=== PATIENT | female | born 1940 | race Caucasian/White ===

== ENCOUNTER → 2017-03-09 | Outpatient (CLI) | payer OTHER, MEDICARE ==
[~2017-03-09] MED LIST: ATOR10TA88 PO; CALCTAB66 PO; CLR10 PO; GABA-112 PO; LSN/2025 PO; MULTTAB58 PO
[2017-03-09 13:58] LABS: BASO % 0.1 %; BASO ABS # 0.01 K/uL (0-0.2); COMPLETE YES; EOS % 0.5 %; HEMATOCRIT 39.6 % (37-47); IG% 0.1 %; LYMPH % 15.1 %; LYMPH ABS # 1.14 K/uL (1.2-3.4); MEAN CORPUSCULAR HEMOGLOBIN 30.3 pg (25-34); MEAN CORPUSCULAR HGB CONC 33.3 g/dl (32-36); MEAN PLATELET VOLUME 11.5 fL (7.4-10.4); MONO % 9.4 %; NEUT % 74.8 %; PLATELET COUNT 244 K/uL (130-400); RED BLOOD COUNT 4.35 M/uL (4.2-5.4); WHITE BLOOD COUNT 7.53 K/uL (4.8-10.8)
[2017-03-09 14:33] LABS: BLOOD UREA NITROGEN 20 mg/dl (7-18); GLUCOSE 105 mg/dl (70-99)
[2017-03-09 14:34] LABS: ALT/SGPT 22 U/L (12-78); AST/SGOT 21 U/L (15-37); BUN/CREATININE RATIO 19.9 (10-20); CALCIUM 10.1 mg/dl (8.5-10.1); CARBON DIOXIDE 29 mmol/L (21-32); CHLORIDE 102 mmol/L (98-107); POTASSIUM 3.7 mmol/L (3.5-5.1); SODIUM 138 mmol/L (136-145)
[2017-03-09 14:45] LABS: ALKALINE PHOSPHATASE 88 U/L (45-117); CHOLESTEROL 149 mg/dl (0-200); CHOLESTEROL/HDL RATIO 1.9; FERRITIN 158.6 ng/ml (8.0-388.0); HDL CHOLESTEROL 80 mg/dl; LDL CHOLESTEROL CALCULATED 53 mg/dl; TRIGLYCERIDES 81 mg/dl (0-150); VERY LOW DENSITY LIPOPROT CALC 16 mg/dl
== END | disposition home or self-care (01) ==
LOC: C.LABBC 09:26
PROVIDERS: ATTEND Internal Medicine Geriatric Medicine
DX: Z86.79 Personal history of other diseases of the circulatory system (principal); G25.81 Restless legs syndrome; E78.5 Hyperlipidemia, unspecified; E04.2 Nontoxic multinodular goiter; R73.9 Hyperglycemia, unspecified; M85.80 Other specified disorders of bone density and structure, unspecified site

== ENCOUNTER → 2017-04-12 | Outpatient (CLI) | payer OTHER, MEDICARE ==
[2017-04-12 17:29] LABS: THYROID STIMULATING HORMONE 0.317 uIu/ml (0.300-4.500)
== END | disposition home or self-care (01) ==
LOC: C.LABBC 14:20
PROVIDERS: ATTEND Internal Medicine Geriatric Medicine
DX: R94.6 Abnormal results of thyroid function studies (principal)

== ENCOUNTER → 2017-09-21 | Outpatient (CLI) | payer OTHER, MEDICARE ==
[~2017-09-21] MED LIST changes: +ATOR10TA82 PO; -ATOR10TA88 PO
--- NOTE | 2017-09-21 10:53 | DIAGNOSTIC IMAGING REPORT ---
CHEST 2 VIEWS ROUTINE HISTORY: 77 years-old Female HYPERTENSION, HYPERGLYCEMIA acute hypertension with hyperglycemia COMPARISON: Chest radiograph 06/11/2014, CTA of the chest 06/11/2016 TECHNIQUE: PA and lateral views of the chest FINDINGS: Cardiomediastinal and hilar silhouettes are within normal limits. Bilateral subpleural predominant reticular opacities are again seen suggesting areas of scarring. There is no pneumothorax, pleural effusion, focal airspace consolidation or overt pulmonary edema. Mild left hemidiaphragmatic elevation. Degenerative changes are noted within the shoulders and spine. Ill-defined calcifications about the right shoulder suggest possible calcific bursitis. IMPRESSION: No acute process. The above report was generated using voice recognition software. It may contain grammatical, syntax or spelling errors. Electronically signed by: Bentley Alarcon M.D. 09/21/2017 10:51 AM Dictated Date/Time: 09/21/2017 10:50 AM
[2017-09-21 13:20] LABS: BASO % 0.2 %; BASO ABS # 0.02 K/uL (0-0.2); EOS % 0.8 %; EOS ABS # 0.07 K/uL (0-0.5); HEMATOCRIT 40.5 % (37-47); HEMOGLOBIN 13.6 g/dL (12.0-16.0); IG# 0.02 K/uL (0.00-0.02); LYMPH % 20.2 %; MEAN CELL VOLUME 91.4 fL (80-100); MEAN CORPUSCULAR HEMOGLOBIN 30.7 pg (25-34); MEAN CORPUSCULAR HGB CONC 33.6 g/dl (32-36); MEAN PLATELET VOLUME 11.4 fL (7.4-10.4); MONO ABS # 0.76 K/uL (0.11-0.59); NEUT % 69.6 %; NEUT ABS # 5.83 K/uL (1.4-6.5); PLATELET COUNT 299 K/uL (130-400); RED CELL DISTRIBUTION WIDTH CV 13.6 % (11.5-14.5)
[2017-09-21 13:30] LABS: ALBUMIN 3.7 gm/dl (3.4-5.0); BLOOD UREA NITROGEN 12 mg/dl (7-18); CALCIUM 9.8 mg/dl (8.5-10.1); CARBON DIOXIDE 30 mmol/L (21-32); GLUCOSE 100 mg/dl (70-99); POTASSIUM 3.6 mmol/L (3.5-5.1); SODIUM 138 mmol/L (136-145)
[2017-09-21 13:46] LABS: ALKALINE PHOSPHATASE 84 U/L (45-117); ALT/SGPT 20 U/L (12-78); AST/SGOT 18 U/L (15-37); TOTAL PROTEIN 7.6 gm/dl (6.4-8.2)
[2017-09-21 14:36] LABS: HEMOGLOBIN A1C 5.6 % (4.5-5.6)
== END | disposition home or self-care (01) ==
LOC: C.RADBC 10:14
PROVIDERS: ATTEND Internal Medicine Geriatric Medicine
DX: I10 Essential (primary) hypertension (principal); R63.4 Abnormal weight loss; R73.9 Hyperglycemia, unspecified; R94.6 Abnormal results of thyroid function studies

== ENCOUNTER → 2017-09-22 | Outpatient (CLI) | payer OTHER, MEDICARE | END | disposition home or self-care (01) | LOC: C.LABBC 13:29 | PROVIDERS: ATTEND Internal Medicine Geriatric Medicine | DX: R31.9 Hematuria, unspecified (principal) ==

== ENCOUNTER → 2017-09-27 | Outpatient (CLI) | payer OTHER, MEDICARE ==
[~2017-09-27] MED LIST changes: +OPTIRAY 320 IV PRN
--- NOTE | 2017-09-27 12:51 | DIAGNOSTIC IMAGING REPORT ---
CT OF THE ABDOMEN AND PELVIS WITH AND WITHOUT CONTRAST HEMATURIA PROTOCOL CLINICAL HISTORY: Hematuria. Weight loss. COMPARISON STUDY: CT of the abdomen and pelvis February 05, 2011. TECHNIQUE: Unenhanced and split bolus phase imaging of the abdomen and pelvis was performed. Injection of 94 cc Optiray 320 IV was uneventful. A dose lowering technique was utilized adhering to the principles of ALARA. CT DOSE: 823.35 mGy.cm FINDINGS: Several hypodense hepatic lesions are unchanged since CT of February 05, 2011. These are benign given stability. There is no biliary or pancreatic ductal dilatation. The spleen and adrenal glands are unremarkable. No renal, ureteral or bladder calculi are present. There is no hydronephrosis or hydroureter. There are no renal lesions. No upper tract filling defects are identified to suggest a urothelial lesion. Bladder is suboptimally assessed given incomplete opacification underdistention. However, no bladder mass is noted. There is no evidence for a bowel obstruction. There is extensive sigmoid diverticulosis. There is moderate asymmetric wall thickening of the proximal sigmoid colon with mild adjacent infiltration. There is no free air or abscess. There is no lymphadenopathy. There are no suspicious osseous lesions. The ovaries are not enlarged. IMPRESSION: 1. No CT findings to explain hematuria. No urinary calculi or upper tract urothelial lesions. Suboptimal evaluation of the bladder but no discrete bladder mass identified. 2. Extensive sigmoid diverticulosis with moderate focal asymmetric wall thickening of the proximal sigmoid colon with mild pericolonic infiltration. The infiltration suggests acute diverticulitis. Asymmetric colonic wall thickening raises the possibility of an underlying mucosal lesion. A follow-up colonoscopy is recommended. Electronically signed by: Osmany Benitez M.D. 09/27/2017 12:49 PM Dictated Date/Time: 09/27/2017 12:33 PM
== END | disposition home or self-care (01) ==
LOC: C.CTS 09:30
PROVIDERS: ATTEND Internal Medicine Geriatric Medicine
DX: K57.32 Diverticulitis of large intestine without perforation or abscess without bleeding (principal); R31.9 Hematuria, unspecified

== ENCOUNTER → 2017-10-31 | Outpatient (CLI) | payer OTHER, MEDICARE ==
[~2017-10-31] MED LIST changes: -OPTIRAY 320 IV PRN
== END | disposition home or self-care (01) ==
LOC: C.LABBC 07:55
PROVIDERS: ATTEND Internal Medicine Geriatric Medicine
DX: R94.6 Abnormal results of thyroid function studies (principal)

== ENCOUNTER → 2018-03-13 | Outpatient (CLI) | payer OTHER, MEDICARE ==
[~2018-03-13] MED LIST changes: +LISI20TA11 PO; -LSN/2025 PO
--- NOTE | 2018-03-13 16:12 | DIAGNOSTIC IMAGING REPORT ---
CHEST 2 VIEWS ROUTINE HISTORY: COUGH COMPARISON: Chest 09/21/2017. FINDINGS: Mild elevation of the left hemidiaphragm, unchanged. Mild interstitial thickening remains unchanged and is likely chronic. The heart is normal in size. Progressive left suprahilar density. No evidence for pulmonary edema. No pneumothorax. No pleural effusions. IMPRESSION: 1. Progressive left suprahilar density. This could be due to the normal pulmonary vessels. However, recommend contrast-enhanced chest CT to exclude the possibility of a left suprahilar mass. 2. Chronic interstitial thickening persists. 3. These findings were called/faxed to the referring physician's office following dictation. Electronically signed by: Von Baez M.D. 03/13/2018 4:11 PM Dictated Date/Time: 03/13/2018 4:09 PM
== END | disposition home or self-care (01) ==
LOC: C.RADBC 15:43
PROVIDERS: ATTEND Family Medicine Adult Medicine
DX: R05 Cough (principal); R60.0 Localized edema

== ENCOUNTER → 2018-03-16 | Outpatient (CLI) | payer OTHER, MEDICARE ==
[~2018-03-16] MED LIST changes: +OPTIRAY 320 IV PRN
--- NOTE | 2018-03-16 12:17 | DIAGNOSTIC IMAGING REPORT ---
CT (CHEST) THORAX WITH CLINICAL HISTORY: 77 years-old Female presenting with COUGH, normal chest x-ray. TECHNIQUE: Multidetector CT imaging of the chest was performed after the administration of intravenous contrast. IV contrast: 115 mL of Optiray 320. A dose lowering technique was used consistent with the principles of ALARA (as low as reasonably achievable). COMPARISON: Chest x-ray from 03/13/[address] from 06/11/2014. CT DOSE (mGy.cm): The estimated cumulative dose is 229.48 mGy.cm. FINDINGS: [employer] topogram: Unremarkable. On soft tissue windows, multiple subcentimeter thyroid nodules. Extensive mediastinal and bilateral hilar lymphadenopathy. Lymph nodes are noted in the right or tracheal, pretracheal, subcarinal, and aortopulmonary regions. Hilar lymphadenopathy accounts for the radiographic finding. Atherosclerosis of the aorta. Normal heart size. Minimal aortic valve calcification. No pericardial or pleural effusion. 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 Additional subcentimeter hypodense lesion is indeterminate (series 4 image 197), possibly hemangioma. Splenule noted. On lung windows, subpleural reticular opacities with a dependent predominance. This affects both upper and lower lobes. This appearance is similar to 2014. No additional focal infiltrate or nodule. Mild mosaic attenuation may suggest small airways disease. Airways patent. On bone windows, degenerative changes of the spine. IMPRESSION: 1. Mediastinal and bilateral hilar lymphadenopathy, new since 2013. In the absence of known malignancy to suggest metastatic disease, this could represent sarcoidosis or lymphoproliferative disease. Lymph nodes may be amenable to endobronchial biopsy. Additionally, short-term interval follow-up could be considered given that this finding is new from prior. 2. Chronic lung disease, which is not significantly progressed since 2014 and may represent fibrotic change. 3. Mosaic attenuation could suggest small airways disease. Electronically signed by: Orion Guillen M.D. 03/16/2018 12:15 PM Dictated Date/Time: 03/16/2018 12:08 PM
== END | disposition home or self-care (01) ==
LOC: C.CTS 11:06
PROVIDERS: ATTEND Family Medicine Adult Medicine
DX: R59.0 Localized enlarged lymph nodes (principal); R05 Cough

== ENCOUNTER → 2018-04-03 | Outpatient (CLI) | payer OTHER, MEDICARE ==
[~2018-04-03] MED LIST changes: -OPTIRAY 320 IV PRN
[2018-04-03 09:37] LABS: BASO % 0.3 %; BASO ABS # 0.02 K/uL (0-0.2); EOS % 1.7 %; EOS ABS # 0.12 K/uL (0-0.5); HEMATOCRIT 38.4 % (37-47); HEMOGLOBIN 12.3 g/dL (12.0-16.0); IG# 0.01 K/uL (0.00-0.02); MEAN CELL VOLUME 91.4 fL (80-100); MEAN CORPUSCULAR HEMOGLOBIN 29.3 pg (25-34); MONO ABS # 0.58 K/uL (0.11-0.59); NEUT % 71.9 %; PLATELET COUNT 290 K/uL (130-400); RED CELL DISTRIBUTION WIDTH CV 14.1 % (11.5-14.5); RED CELL DISTRIBUTION WIDTH SD 45.9 fL (36.4-46.3); WHITE BLOOD COUNT 7.23 K/uL (4.8-10.8)
[2018-04-03 09:47] LABS: ALBUMIN 3.5 gm/dl (3.4-5.0); ALKALINE PHOSPHATASE 92 U/L (45-117); ALT/SGPT 20 U/L (12-78); AST/SGOT 18 U/L (15-37); BLOOD UREA NITROGEN 11 mg/dl (7-18); CALCIUM 9.4 mg/dl (8.5-10.1); CARBON DIOXIDE 27 mmol/L (21-32); CREATININE 0.92 mg/dl (0.60-1.20); GLUCOSE 99 mg/dl (70-99); POTASSIUM 3.9 mmol/L (3.5-5.1); SODIUM 139 mmol/L (136-145); TOTAL PROTEIN 7.7 gm/dl (6.4-8.2)
== END | disposition home or self-care (01) ==
LOC: C.LAB1850 07:44
PROVIDERS: ATTEND Internal Medicine Pulmonary Disease
DX: R59.0 Localized enlarged lymph nodes (principal)